=== PATIENT | male | born 1955 | race Caucasian/White ===

== ENCOUNTER 2017-11-04 02:26 | Emergency (ER) | payer OTHER ==
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
[2017-11-04 04:04] VITALS: BP 173/90
== END 2017-11-04 04:07 | disposition home or self-care (01) ==
LOC: ED 02:26
DX: Z02.83 Encounter for blood-alcohol and blood-drug test (principal); Z95.1 Presence of aortocoronary bypass graft; Z87.891 Personal history of nicotine dependence; Z80.1 Family history of malignant neoplasm of trachea, bronchus and lung
CPT/HCPCS: 99282